=== PATIENT | female | born 1980 | race Caucasian/White ===

== ENCOUNTER 2017-04-25 10:19 | Inpatient (IN) | payer MEDICAID ==
[~2017-04-25] VITALS: Ht 152.4 cm; Wt 70.0 kg
[2017-04-25 10:21] VITALS: Ht 152.4 cm; Wt 70.0 kg
[2017-04-25 10:22] VITALS: BP 106/59; PULSE 52; RESP 20
--- NOTE | 2017-04-25 12:39 | RADRPT ---
PROCEDURE: Obstetrical ultrasound CLINICAL INDICATION: ,JEROME TECHNIQUE: Multiple sonographic images of the pelvis were obtained. The images were reviewed on a PACS workstation. COMPARISON: None FINDINGS: The cervix is not well visualized. There is a single viable intrauterine gestation. Cardiac activity is present with 157 beats per minute. There is a vertex presentation. The placenta is anterior. There is no evidence for an abruption or placenta previa. There is a low amount of amniotic fluid with an JEROME = 5.2 cm. Measurements were made in order to determine age. The results are as follows (cm): BPD =8.48 HC =31.18 AC =32.14 FL =6.50 Estimated gestational age by ultrasound of approximately 34 weeks, 5 days. The estimated date of delivery by ultrasound is 06/01/2017. Estimated gestational age by LMP of approximately 36 weeks, 3 days. The estimated date of delivery by LMP is 05/20/2017. EFW = 2586 grams (19th percentile) IMPRESSION: Single viable intrauterine gestation of approximately 34 weeks, 5 days . The estimated date of delivery is 06/01/2017 . Dating by ultrasound is within 12 days of dating by LMP. Low JEROME of 5.2 cm. Cephalic presentation. Estimated weight is in the 19th percentile. RPTAT: EE Physician Ade Date Time Electronically viewed and signed by Physician Ade on 04/25/2017 12:39 /
--- NOTE | 2017-04-25 12:57 | TRIAGE ---
OB Triage Datetime Report Generated by CPN: 04/25/2017 12:56 Datetime: 04/25/2017 12:14 Labor Evaluation Frequency: X3 Monitor Mode: External Duration (sec)2399: 40-90 Quality: Mild Pattern: Normal: <= 5 Contractions in 10 Minutes Resting Tone Cherry Log: Relaxed Heart Rate FHR Baseline Rate: 145 Monitor Mode: External US FHR Baseline Changes: No Baseline Change Variability: Moderate 6-25 bpm Accelerations: 15X15 Decelerations: Early Category: Category II Pain Assessment Pain Scale: 1 Pain Presence: Intermittent Pain Type: Contraction Pain Location: Abdomen Pain Goal: 2 Datetime: 04/25/2017 11:44 Labor Evaluation Frequency: X2 Monitor Mode: External Duration (sec)2399: 40-80 Quality: Mild Pattern: Normal: <= 5 Contractions in 10 Minutes Resting Tone Cherry Log: Relaxed Heart Rate FHR Baseline Rate: 145 Monitor Mode: External US FHR Baseline Changes: No Baseline Change Variability: Moderate 6-25 bpm Accelerations: 15X15 Decelerations: Early Category: Category I Pain Assessment Pain Scale: 0 Pain Presence: None/Denies Pain Type: N/A Pain Goal: 2 Datetime: 04/25/2017 11:14 Labor Evaluation Frequency: X3 Monitor Mode: External Duration (sec)2399: 60-120 Quality: Mild Pattern: Normal: <= 5 Contractions in 10 Minutes Resting Tone Cherry Log: Relaxed Heart Rate FHR Baseline Rate: 140 Monitor Mode: External US FHR Baseline Changes: No Baseline Change Variability: Moderate 6-25 bpm Accelerations: 15X15 Decelerations: None Category: Category I Pain Assessment Pain Scale: 0 Pain Presence: None/Denies Pain Type: N/A Pain Goal: 2 Datetime: 04/25/2017 10:45 Labor Evaluation Frequency: 1-4 Monitor Mode: External Duration (sec)2399: 40-80 Quality: Mild Pattern: Normal: <= 5 Contractions in 10 Minutes Resting Tone Cherry Log: Relaxed Heart Rate FHR Baseline Rate: 150 Monitor Mode: External US FHR Baseline Changes: No Baseline Change Variability: Moderate 6-25 bpm Accelerations: 10X10 Decelerations: Early Category: Category I Pain Assessment Pain Scale: 0 Pain Presence: None/Denies Pain Type: N/A Pain Goal: 2 Membrane Status: Ruptured Datetime: 04/25/2017 10:35 Vaginal Exam Dilatation (cms): 2.0 Effacement (%): 60 Station: -3 Exam By: MAY Membrane Status: Ruptured Datetime: 04/25/2017 10:25 Stage of : OB Triage Assessment Type: Triage EGA: 36.2 Arrived By: Ambulatory Arrived From: Home Maternal Assessment Level of Consciousness: Fully Conscious DTR's/Clonus: DTRs 2+; No Clonus Headache: Denies Blurred Vision: No Respiratory Effort: Unlabored; Regular Rhythm; Equal Expansion Nausea/Vomiting: Denies RUQ Epigastric Pain: Denies Lower Extremities Edema: None Degree: None Upper Extremities Edema: None Degree: None Facial Edema: None Temperature Route: Axillary Fall Risk Assessment History of Falling: (0) No Secondary Diagnosis: (0) No Ambulatory Aid: (0) Bedrest/Nurse Assist IV Therapy: (0) No Gait: (0) Normal/Bedrest/Immobile Mental Status: (0) Oriented to Own Ability Fall Score: 0 Fall Risk Score Definition: No Risk: No action required Datetime: 04/25/2017 10:05 Time of Arrival: 04/25/2017 10:05 Arrived By: Ambulatory Arrived From: Home Chief Complaint: C/O LEAKING SINCE 629 Movement: Present Rupture of Membranes: Unsure Vaginal Bleeding: None Vaginal Discharge: Denies Recent Sexual Intercouse: Denies Abdominal Trauma: Not Applicable Patient Complaints: Other Time Provider Notified: 04/25/2017 11:25 Provider Notified: DR. FRANCO Initial Plan: ASHU
[2017-04-25] MEDS ORDERED: ACETAMINOPHEN/CODEINE #3 TAB PO PRN ×3 (13:00→22:00)
[2017-04-25] MEDS ORDERED: MISOPROSTOL 200 MCG TAB PR PRN (13:00)
[2017-04-25] MEDS ORDERED: OXYTOCIN 30 UNITS/LR 500 ML IV SCH ×3 (13:00)
[2017-04-25] MEDS ORDERED: BUTORPHANOL 2 MG INJ IV PRN (13:00)
[2017-04-25] MEDS ORDERED: METHYLERGONOVINE 0.2 MG INJ IM PRN (13:00)
[2017-04-25] MEDS ORDERED: LIDOCAINE 1% (MPF) 30 ML INJ INJ PRN (13:00)
[2017-04-25] MEDS ORDERED: IBUPROFEN 600 MG TAB PO PRN (13:00)
[2017-04-25] MEDS ORDERED: AMPICILLIN 2 GM/NS (PMX) 100 ML IV ONE (13:00)
[2017-04-25] MEDS ORDERED: CARBOPROST 250 MCG INJ IM PRN (13:00)
[2017-04-25] MEDS ORDERED: OXYTOCIN 30 UNITS/LR 500 ML IV PRN (13:00)
[2017-04-25] MEDS: LACTATED RINGER'S 1,000 ML IV SCH ×2 (13:26→17:50)
[2017-04-25 13:34] LABS: ADD SCAN DIFF NO
[2017-04-25 13:37] LABS: BASOPHILS % 0.3 % (0.0-2.0); EOSINOPHILS # 0.1 10^3/ul (0.0-0.5); EOSINOPHILS % 0.5 % (0.0-7.0); HEMATOCRIT 36.2 % (37.0-47.0); HEMOGLOBIN 12.1 g/dl (12.0-16.0); LYMPHOCYTES # 1.6 10^3/ul (0.8-2.9); LYMPHOCYTES % 17.3 % (15.0-51.0); MEAN CORPUSCULAR HEMOGLOBIN 32.9 pg (29.0-33.0); MEAN CORPUSCULAR HGB CONC 33.4 g/dl (32.0-37.0); MEAN CORPUSCULAR VOLUME 98.4 fl (82.0-101.0); MEAN PLATELET VOLUME 10.7 fl (7.4-10.4); MONOCYTE # 0.6 10^3/ul (0.3-0.9); MONOCYTES % 6.3 % (0.0-11.0); NEUTROPHIL # 6.8 10^3/ul (1.6-7.5); NEUTROPHILS % 74.8 % (39.0-77.0); PLATELET COUNT 197 10^3/UL (140-415); RED BLOOD COUNT 3.68 10^6/ul (4.20-5.40); RED CELL DISTRIBUTION WIDTH 13.6 % (11.5-14.5); WHITE BLOOD COUNT 9.1 10^3/ul (4.8-10.8)
[2017-04-25 13:56] LABS: INR 1.03; PARTIAL THROMBOPLASTIN TIME 30.1 Sec (25.0-35.0); PROTIME 13.5 Sec (12.2-14.2); PT RATIO 1.1
[2017-04-25] MEDS ORDERED: LACTATED RINGER'S 1,000 ML IV PRN (14:00)
[2017-04-25] MEDS ORDERED: AMPICILLIN 1 GM/NS (PMX) 50 ML IV SCH (17:00)
[2017-04-25] MEDS ORDERED: FENTAnyl 2MCG/ML-ROPIV 0.2% 100 ML ONE (17:40)
--- NOTE | 2017-04-25 18:38 | HP ---
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 30 days history of 3 previous with normal vaginal deliveries years , 2005 and 2008 Chief Complaint: Premature rupture of membrane early labor Estimated Due Date: May 21, 2017 : 4 Para: 3 Care: Good Care Ultrasounds: Normal mid trimester US Obstetrical Complications: None Medical Complications: None Past Family/Social History * Past Medical, Surgical, Family and Obstetric Histories reviewed from chart. Rubella: immune RPR/VDRL: Negative GBS Status: Negative HBsAG: Negative OB Admission Exam Vital Signs Vital Signs Vital Signs Date Time Temp Pulse Resp B/P Pulse Ox O2 Delivery O2 Flow Rate FiO2 04/25/17 10:22 98.1 52 20 106/59 Room Air Physical Exam HEENT: WNL Heart: Rhythm Normal Lungs: Clear, Equal Abdomen: WNL Extremities: Normal Reflexes: Normal Cervical Dilatation: 2cm Effacement: 50% Station: -2 Membranes: Ruptured Amniotic Fluid: Clear Heart Rate: 130's Accelerations: Accelerations Present Decelerations: Early Decelerations Varibility: Moderate Contractions on Admission: >10 Minutes Apart Intensity: Moderate Last 72 hours Lab Results CBC & BMP 04/25/17 13:05 OB Assessment/Plan Plan: Expectant Management (1), Other (Labor augmentation) Induction Method: per Pitocin Protocol MARILYN FRANCO MD Apr 25, 2017 18:38
--- NOTE | 2017-04-25 19:01 | LDN ---
Date/Time of Note Date/Time of Note DATE: 04/25/17 TIME: 18:59 Delivery Summary Normal spontaneous vaginal delivery of a baby boy from OA position shoulders delivered without any difficulties rest of the baby's body followed placenta spontaneous expulsion inspected complete peritoneal vaginal infection no lacerations Weeks of Gestation 36 weeks 2 days Placenta Delivered: Spontaneously Meconium: none Episiotomy: No Laceration repair: None Anesthesia type: Epidural Estimated blood loss: 250 Sponge & Needle done & correct: Yes All needle counts correct: Yes Any foreign bodies felt in the: No Problems: Delivery Information Sex Sex: male Apgars 1 Minute: 9 5 Minute: 9 Suctioning Nose & mouth suctioned at farnaz: Yes Delee suction performed: No Umbilical Cord Umbilical cord with: 3 Vessels Cord presentations: no nuchal cord Cord Blood was obtained: Yes MARILYN FRANCO MD Apr 25, 2017 19:01
[2017-04-25 20:20] VITALS: BP 109/62; PULSE 77; RESP 18
[2017-04-25 21:20] VITALS: BP 109/62; RESP 19
[2017-04-25] MEDS ORDERED: OXYCODONE/ASPIRIN (4.88/325) TAB PO PRN ×2 (22:00)
[2017-04-25] MEDS ORDERED: DIBUCAINE 1% 30 GM OINT PR PRN (22:00)
[2017-04-25] MEDS ORDERED: ONDANSETRON 4 MG INJ IV PRN (22:00)
[2017-04-25] MEDS ORDERED: BENZOCAINE 20% 56 ML SPRAY TOP PRN (22:00)
[2017-04-25] MEDS ORDERED: LANOLIN 7 GM TUBE TOP PRN (22:00)
[2017-04-25] MEDS ORDERED: ACETAMINOPHEN 325 MG TAB PO PRN (22:00)
[2017-04-25] MEDS ORDERED: WITCH HAZEL/GLYCERIN PAD PR PRN (22:00)
[2017-04-25 22:20] VITALS: BP 106/59; PULSE 81; RESP 18
[2017-04-25] MEDS: OXYTOCIN 30 UNITS/LR 500 ML IV SCH (23:51)
[2017-04-25] MEDS: IBUPROFEN 600 MG TAB PO SCH (23:51)
[2017-04-26] VITALS: BP 104/52; PULSE 85; RESP 19
[2017-04-26] MEDS: OXYTOCIN 30 UNITS/LR 500 ML IV SCH (01:55)
[2017-04-26 04:00] VITALS: BP 106/58; PULSE 66; RESP 19
[2017-04-26] MEDS: IBUPROFEN 600 MG TAB PO SCH ×4 (05:42→23:30)
[2017-04-26 06:38] LABS: ADD SCAN DIFF NO
[2017-04-26 06:45] LABS: BASOPHILS % 0.3 % (0.0-2.0); EOSINOPHILS % 0.3 % (0.0-7.0); HEMATOCRIT 35.8 % (37.0-47.0); HEMOGLOBIN 11.9 g/dl (12.0-16.0); LYMPHOCYTES # 2.1 10^3/ul (0.8-2.9); LYMPHOCYTES % 13.7 % (15.0-51.0); MEAN CORPUSCULAR HEMOGLOBIN 32.9 pg (29.0-33.0); MEAN CORPUSCULAR HGB CONC 33.2 g/dl (32.0-37.0); MEAN CORPUSCULAR VOLUME 98.9 fl (82.0-101.0); MEAN PLATELET VOLUME 11.1 fl (7.4-10.4); MONOCYTE # 1.1 10^3/ul (0.3-0.9); MONOCYTES % 6.9 % (0.0-11.0); NEUTROPHILS % 78.3 % (39.0-77.0); PLATELET COUNT 189 10^3/UL (140-415); RED BLOOD COUNT 3.62 10^6/ul (4.20-5.40); RED CELL DISTRIBUTION WIDTH 13.6 % (11.5-14.5); WHITE BLOOD COUNT 15.3 10^3/ul (4.8-10.8)
[2017-04-26 08:30] VITALS: BP 94/50; PULSE 80; RESP 19
[2017-04-26] MEDS: SENNA/DOCUSATE NA (8.6MG/50MG) TAB PO SCH ×2 (09:50→20:49)
[2017-04-26 12:00] VITALS: BP 84/50; PULSE 80; RESP 18
--- NOTE | 2017-04-26 12:07 | PN ---
Date/Time of Note Date/Time of Note DATE: 04/26/17 TIME: 12:05 OB Subjective Subjective Subjective April 24 2017 Post day 1 Patient is doing well, Ambulatory She is afebrile Abdomen is soft , Fundus is firm Moderate amount of lochia Breasts are soft, Nipples are intact No calf tenderness. Laboratory Tests Test 04/25/17 13:05 04/26/17 06:15 White Blood Count 9.110^3/ul 15.310^3/ul Red Blood Count 3.6810^6/ul 3.6210^6/ul Hemoglobin 12.1g/dl 11.9g/dl Hematocrit 36.2% 35.8% Mean Corpuscular Volume 98.4fl 98.9fl Mean Corpuscular Hemoglobin 32.9pg 32.9pg Mean Corpuscular Hemoglobin Concent 33.4g/dl 33.2g/dl Red Cell Distribution Width 13.6% 13.6% Platelet Count 81323^3/UL 13012^3/UL Mean Platelet Volume 10.7fl 11.1fl Neutrophils % 74.8% 78.3% Lymphocytes % 17.3% 13.7% Monocytes % 6.3% 6.9% Eosinophils % 0.5% 0.3% Basophils % 0.3% 0.3% Nucleated Red Blood Cells % 0.0/100WBC 0.0/100WBC Neutrophils # 6.810^3/ul 12.010^3/ul Lymphocytes # 1.610^3/ul 2.110^3/ul Monocytes # 0.610^3/ul 1.110^3/ul Eosinophils # 0.110^3/ul 0.010^3/ul Basophils # 0.010^3/ul 0.010^3/ul Nucleated Red Blood Cells # 0.010^3/ul 0.010^3/ul Prothrombin Time 13.5Sec Prothrombin Time Ratio 1.1 INR International Normalized Ratio 1.03 Activated Partial Thromboplast Time 30.1Sec Rapid Plasma Reagin NONREACTIVE Hepatitis B Surface Antigen NEGATIVE Current Medications Medications (Trade) Dose Ordered Sig/Ana Cristina Route PRN Reason Start Time Stop Time Status Last Admin Dose Admin Lactated Ringer's 1,000 ml @ 125 mls/hr Q8H IV 04/25/17 12:59 04/25/17 21:58 DC 04/25/17 17:50 Ampicillin 100 ml @ 100 mls/hr ONCE ONCE IV 04/25/17 13:00 04/25/17 13:59 DC 04/25/17 13:26 Ampicillin 50 ml @ 100 mls/hr Q4H IV 04/25/17 17:00 04/25/17 21:58 DC 04/25/17 16:46 Oxytocin/Lactated Ringer's 500 ml @ 0 mls/hr TITRATE IV 04/25/17 13:00 04/25/17 21:58 DC 04/25/17 13:37 Butorphanol Tartrate (Stadol) 2 mg Q2H PRN IV PAIN 04/25/17 13:00 04/25/17 21:58 DC Lidocaine 30 ml 30 ml ONCE PRN INJ EPISIOTOMY/TEARING 04/25/17 13:00 04/25/17 21:58 DC Oxytocin/Lactated Ringer's 500 ml @ 125 mls/hr ONCE -MAY REPEAT X1 IV 04/25/17 13:00 04/25/17 21:58 DC 04/25/17 19:26 Oxytocin/Lactated Ringer's 500 ml @ 125 mls/hr ONCE IV 04/25/17 13:00 04/25/17 21:58 DC Ibuprofen (Motrin) 600 mg ONCE PRN PO Mild Pain (Pain Score 1-3) 04/25/17 13:00 04/25/17 21:58 DC Acetaminophen/ Codeine Phosphate 2 tab 2 tab ONCE PRN PO Moderate to Severe Pain (4-10) 04/25/17 13:00 04/25/17 21:58 DC Lactated Ringer's 1,000 ml @ 2,000 mls/hr Q30M PRN IV PRE-EPIDURAL BOLUS 04/25/17 14:00 04/25/17 21:58 DC 04/25/17 17:05 Oxytocin/Lactated Ringer's 500 ml @ 0 mls/hr ONCE PRN IV For Hemorrhage Management 04/25/17 13:00 04/25/17 21:58 DC Methylergonovine Maleate (Methergine) 0.2 mg ONCE PRN IM VAGINAL BLEEDING 04/25/17 13:00 04/25/17 21:59 DC Carboprost Tromethamine (Hemabate) 250 mcg ONCE PRN IM VAGINAL BLEEDING 04/25/17 13:00 04/25/17 21:58 DC Misoprostol 1000 mcg 1,000 mcg ONCE PRN VT VAGINAL BLEEDING 04/25/17 13:00 04/25/17 21:59 DC Fentanyl/ Ropivacaine 100 ml @ ud STK-MED ONCE .ROUTE 04/25/17 17:40 04/25/17 17:41 DC Oxytocin/Lactated Ringer's 500 ml @ 125 mls/hr Q4H IV 04/25/17 21:55 04/26/17 05:54 DC 04/25/17 23:51 Ibuprofen (Motrin) 600 mg Q6 PO 04/26/17 00:00 04/26/17 11:42 Acetaminophen (Tylenol Tab) 650 mg Q4H PRN PO PAIN LEVEL 1-5 04/25/17 22:00 Acetaminophen/ Codeine Phosphate (Tylenol No.3) 1 tab Q4H PRN PO PAIN LEVEL 1-5 04/25/17 22:00 Acetaminophen/ Codeine Phosphate (Tylenol No.3) 2 tab Q4H PRN PO PAIN LEVEL 6-10 04/25/17 22:00 Oxycodone/Aspirin (Percodan) 1 tab Q3H PRN PO PAIN LEVEL 1-5 04/25/17 22:00 Oxycodone/Aspirin (Percodan) 2 tab Q3H PRN PO PAIN LEVEL 6-10 04/25/17 22:00 Ondansetron HCl (Zofran Inj) 4 mg Q6H PRN IV NAUSEA AND/OR VOMITING 04/25/17 22:00 Senna/Docusate Sodium (Senokot-S) 1 tab BID PO 04/26/17 09:00 04/26/17 09:50 Witch Leisa/ Glycerin (Tucks Pads) 1 pad BEDSIDE MEDICATION PRN VT HEMORRHOID/EPISIOTMY PAIN 04/25/17 22:00 Benzocaine (Dermoplast [place]) 1 spray BEDSIDE MEDICATION PRN TOP HEMORRHOID/EPISIOTMY PAIN 04/25/17 22:00 Dibucaine (Nupercainal) 1 applic BEDSIDE MEDICATION PRN VT HEMORRHOID/EPISIOTMY PAIN 04/25/17 22:00 Lanolin (Seh-P-Rurfnp) 1 applic BEDSIDE MEDICATION PRN TOP BEDSIDE FOR HÉCTOR TO NIPPLES 04/25/17 22:00 04/25/17 23:52 Measles/Mumps/ Rubella Vaccine Live (Mmr Ii Vaccine) 0.5 ml ONCE ONCE SC* 04/27/17 09:00 04/27/17 09:01 Breast feeding the new born. BERNARD MELENDEZ MD Apr 26, 2017 12:07
[2017-04-26 16:00] VITALS: BP 122/94; PULSE 78; RESP 18
[2017-04-26 20:00] VITALS: BP 106/52; PULSE 59; RESP 18
[2017-04-27 04:00] VITALS: BP 101/46; PULSE 72; RESP 18
[2017-04-27] MEDS: IBUPROFEN 600 MG TAB PO SCH ×2 (05:43→12:00)
[2017-04-27 08:00] VITALS: BP 111/59; PULSE 83; RESP 18
[2017-04-27] MEDS ORDERED: MEASLES,MUMPS,RUBELLA VACCINE INJ SC* ONE (09:00)
[2017-04-27] MEDS: SENNA/DOCUSATE NA (8.6MG/50MG) TAB PO SCH (09:00)
--- NOTE | 2017-04-27 12:36 | DS ---
Date/Time of Note Date/Time of Note DATE: 04/27/17 TIME: 12:33 Discharge Summary Admission/Discharge Info Admit Date/Time Apr 25, 2017 at 12:55 Discharge Date/Time April 27, 2017 at 1230 Final Diagnosis Post normal vaginal delivery day 2 Patient Condition: Good Procedures Normal spontaneous vaginal delivery Hx of Present Illness Term intrauterine Hospital Course Satisfactory uneventful Follow-up Plan Appointment clinic in 2 weeks patient received extensive instructions Primary Care Provider Care Physician No Primary Time spent on discharge: < 30 minutes MARILYN FRANCO MD Apr 27, 2017 12:36
--- NOTE | 2017-04-27 14:29 | CONS ---
DATE OF ADMISSION: 04/25/2017 DATE OF CONSULTATION: 04/27/2017 CARDIOLOGY CONSULTATION REASON FOR CONSULTATION: PVCs in a pattern of bigeminy, bradycardia. REQUESTING PHYSICIANS: Marilyn Duenas MD and Annie Harden NP from the hospitalist service HISTORY OF PRESENT ILLNESS: Ms. Ferro is a 37-year-old female who is a G4, P4 status post normal s pontaneous vaginal delivery day #2 who was to be discharged and underwent routine analysis and was f ound to be bradycardic by vital sign assessment. The patient subsequently underwent an EKG revealin g sinus rhythm with PVCs in a pattern of bigeminy. Given these findings, cardiology consult has bee n requested. The patient currently denies chest pain, palpitation, dizziness, shortness of breath, prior syncope. The patient does state that in the past she has been told to see a top lift scourer for slow heart rates, but did not follow up as she felt okay. PAST MEDICAL HISTORY: As above in HPI. MEDICATIONS CURRENTLY IN HOSPITAL: 1. Ibuprofen. 2. Oxycodone. 3. Senna. ALLERGIES: NO KNOWN DRUG ALLERGIES. SOCIAL HISTORY: No tobacco, ETOH or illicit drug use. FAMILY HISTORY: No history of sudden cardiac or early CAD. REVIEW OF SYSTEMS: As above in HPI. CONSTITUTIONAL: No fevers, chills. PULMONARY: No current shortness of breath. CARDIOVASCULAR: PVCs, bigeminy. GASTROINTESTINAL: No vomiting. GENITOURINARY: No hematuria. MUSCULOSKELETAL: No degenerative joint disease. PSYCHIATRIC: No documented psych history. PHYSICAL EXAMINATION: VITAL SIGNS: Temperature 98, blood pressure 111/59, pulse 83, respirations 18. GENERAL: The patient is alert, awake, in no acute distress. NECK: JVP approximately 8 cm of water. CHEST: Fair air movement throughout. HEART: Regular rate and rhythm. Normal S1, S2, I/ systolic murmur, nondisplaced PMI. ABDOMEN: Positive bowel sounds, soft. EXTREMITIES: No edema, 1+ pulses bilaterally, posterior tibial. LABORATORIES: Most recently from the [facility], white blood cell count of 15.3, hemoglobin 11.9, platelet count of 189. INR of 1.0. IMAGING STUDIES: As above in HPI. No further imaging studies for my review at this time. ECG: Shows sinus rhythm at 86 with PVCs in a pattern of bigeminy. IMPRESSION: 1. Premature ventricular contractions/pattern of bigeminy, assess for ongoing significant arrhythmi a. Rule out acute coronary syndrome. 2. Bradycardia, currently reasonable and may be related to the patient's PVCs not being counted in the rhythm. 3. Hypotension early in the morning, now improved. 4. Status post normal spontaneous vaginal delivery. RECOMMENDATIONS: 1. At this time, would transfer patient to telemetry monitoring to assess for ongoing significant c ardiac arrhythmia. 2. Will check the patient's electrolytes, most notably potassium, magnesium, and replete greater th an 4 and 2 respectively as necessary. 3. Will continue to check serial EKGs to assess for any significant ongoing changes. EKG in the mo rning, EKG for any complaints of chest pain or change in rhythm. 4. We will follow the patient's blood pressure and heart rate and if can tolerate it, will initiate the patient on low-dose beta krunal for suppression of further bouts of PVCs and bigeminy. 5. Check a 2-D echo to further assess the patient's ejection fraction, wall motion, and any major a bnormalities and will complete a rule out for myocardial infarction to ensure that the patient's new onset PVCs and bigeminy are not due to any invoked coronary syndromes, vasospastic disease. Thank you for allowing me to take part in the care of this patient. I will continue to follow along very closely with you. Further recommendations will be made as the patient progresses through her inpatient hospital clinical course. Dictated By: DEMETRIO WHITTINGTON/WILFRID Conf#: [id number] DID#: [id number] CC: MARILYN DUENAS MD; ANNIE HARDEN NP;*EndCC*
[2017-04-27 15:28] LABS: CALCIUM 8.5 mg/dl (8.4-10.2); CREATININE 0.78 mg/dl (0.44-1.00); MAGNESIUM 1.7 mg/dl (1.7-2.5); POTASSIUM 4.1 mmol/L (3.5-5.1)
--- NOTE | 2017-04-27 15:43 | HP ---
Date/Time of Note Date/Time of Note DATE: 04/27/17 TIME: 15:41 Assessment/Plan VTE Prophylaxis VTE Prophylaxis Intervention: ambulation Lines/Catheters IV Catheter Type (from Nrs): Peripheral IV Assessment/Plan Chief Complaint/Hosp Course Impression and plan 1. Reported PVC as well as bradycardia. Patient asymptomatic at this time. Home Decorator was consulted. Recommend for telemetry monitoring. Follow-up on echocardiogram. So troponins to be done. Follow-up on thyroid profile 2. Reported hypotension. Improved at present. Will monitor for now. 3. Recent status post spontaneous vaginal delivery. CONDENSER OPERATOR was following. Patient for outpatient follow-up Admission process time is 40 minutes Discussed plan of care with Dr. Montoya Problems: HPI/ROS Admit Date/Time Admit Date/Time Apr 25, 2017 at 12:55 Hx of Present Illness This is a 37-year-old female with no reported past medical history who was recently 4 para 4 with recent spontaneous vaginal delivery 1 day ago who was initially admitted to [facility] for delivery. Was reported that after patient's delivery she was found to be bradycardic and also had some PVC. She was noted to be asymptomatic.. She denied any chest pain or shortness of breath or any other history of heart disease. Patient was also have noted white count of 15.3 afebrile. Denies any chest pain or shortness of breath or any heart palpitations at this time. No history or reports of drug use. We will evaluate her for the aformentiond issues ROS 12 point review of systems obtained entirely negative except that mentioned in history of present illness PMH/Family/Social Past Medical History Medical History: no pertinent history Past Surgical History Past Surgical Hx: no surgical history Family History Significant Family History: no pertinent family hx Social History Alcohol Use: none Smoking Status: Never smoker Drug Use: none Exam/Review of Systems Vital Signs Vitals Vital Signs Date Time Temp Pulse Resp B/P Pulse Ox O2 Delivery O2 Flow Rate FiO2 04/27/17 08:00 98.0 83 18 111/59 Room Air Exam Constitutional: alert Psych: no complaints Head: normocephalic Neck: supple, No jvd Respiratory: clear to auscultation, normal air movement Cardiovascular: other (Irregular rate) Gastrointestinal: non-tender, soft Musculoskeletal: nl extremities to inspection, nl gait and stance Extremities: normal pulses Neurological: LITIGATION MANAGER II-XII intact, nl mental status, nl speech Labs Result Diagram: 04/26/17 0615 Medications Medications Current Medications Ibuprofen (Motrin) 600 mg Q6 PO Last administered on 04/27/17 05:43; Admin Dose 600 MG; Start 04/26/17 at 00:00 Acetaminophen (Tylenol Tab) 650 mg Q4H PRN PO PAIN LEVEL 1-5; Start 04/25/17 at 22:00 Acetaminophen/ Codeine Phosphate (Tylenol No.3) 1 tab Q4H PRN PO PAIN LEVEL 1-5 ; Start 04/25/17 at 22:00 Acetaminophen/ Codeine Phosphate (Tylenol No.3) 2 tab Q4H PRN PO PAIN LEVEL 6- 10; Start 04/25/17 at 22:00 Oxycodone/Aspirin (Percodan) 1 tab Q3H PRN PO PAIN LEVEL 1-5; Start 04/25/17 at 22:00 Oxycodone/Aspirin (Percodan) 2 tab Q3H PRN PO PAIN LEVEL 6-10; Start 04/25/17 at 22:00 Ondansetron HCl (Zofran Inj) 4 mg Q6H PRN IV NAUSEA AND/OR VOMITING; Start 04/25 at 22:00 Senna/Docusate Sodium (Senokot-S) 1 tab BID PO Last administered on 04/26/17 20 :49; Admin Dose 1 TAB; Start 04/26/17 at 09:00 ANNIE DAVENPORT Apr 27, 2017 15:43
--- NOTE | 2017-04-27 15:58 | RADRPT ---
Echocardiogram Report Patient Name: VANESSA LATHAM Gender: Female Date: 1980 Study Date: 27-Apr-2017 Chief Media Officer: Isabel Herrera, Location: [facility] Ref. Physician: ANNIE DAVENPORT Quality: Good Procedures: Transthoracic echocardiogram with complete 2D, M-Mode, and doppler examination. Indications: Bradycardia/PVC. 2D/M Mode Doppler Measurement Value Normal Ranges Measurement Value Normal Ranges LVIDd 2D 4.7 3.5 - 5.6 cm AV Peak [place] 1.6 m/sec LVIDs 2D 3.7 2.1 - 4.1 cm AV Peak PG 10.1 mmHg LVPWd 2D 1.0 0.6 - 1.1 cm LVOT Peak [place] 0.9 m/sec IVSd 2D 0.8 0.6 - 1.1 cm LVOT Peak PG 3.4 mmHg AoR Diam 2D 2.3 2.0 - 3.7 cm MV E Peak [place] 1.0 m/sec EDV 2D 101.0 cm3 MV A Peak [place] 0.8 m/sec ESV 2D 52.2 cm3 MV E/A 1.4 LA Dimen 2D 3.7 2.3 - 4.0 cm MV Decel Time 267 msec MV Decel [place] 4 MV E/A 1.4 TR Peak [place] 2.9 m/sec TR Peak PG 32.9 mmHg RVSP 36.0 mmHg Findings Left Ventricle: Normal left ventricular cavity size. Normal left ventricular wall thickness. Mild left ventricular systolic dysfunction. Ejection fraction is visually estimated at 4045 %. Right Ventricle: Normal right ventricular size. Normal right ventricular systolic function. Left Atrium: The left atrium is normal in size. Right Atrium: The right atrium is normal in size. Mitral Valve: Normal appearance and function of the mitral valve with trace physiologic regurgitation. Aortic Valve: Normal appearance of the aortic valve. No significant aortic stenosis or insufficiency. Tricuspid Valve: Normal appearance of the tricuspid valve. Estimated peak PA systolic pressure 36 mmHg. There is mild tricuspid regurgitation. Pulmonic Valve: Normal pulmonic valve appearance. Pericardium: Normal pericardium with no significant pericardial effusion. Aorta: Normal aortic root. IVC: Normal size and normal respiratory collapse consistent with normal right atrial pressure. Conclusions 1.Normal left ventricular cavity size. Normal left ventricular wall thickness. Mild left ventricular systolic dysfunction. Ejection fraction is visually estimated at 40-45 %. 2.Normal appearance and function of the mitral valve with trace physiologic regurgitation. 3.Normal appearance of the tricuspid valve. Estimated peak PA systolic pressure 36 mmHg. There is mild tricuspid regurgitation. Electronically Signed By: Burke Connelly 27-Apr-2017 15:57:18 -0700 Patient Name: VANESSA LATHAM Study Date: 27-Apr-2017 [id number]
[2017-04-27 15:59] LABS: THYROID STIMULATING HORMONE 2.34 MIU/L (0.465-4.680)
[2017-04-27 16:00] VITALS: BP 110/60; PULSE 78; RESP 18
--- NOTE | 2017-04-28 17:01 | RADRPT ---
Vent Rate: 86 bpm RR Interval: 0 msec MS Interval: 144 msec QRS Duration: 78 msec QT Interval: 344 msec QTC Interval: 411 msec P-R-T [place]: 28 - 65 - 47 degrees Sinus rhythm with frequent premature ventricular complexes in a pattern of bigeminy Otherwise normal ECG No previous tracing available for comparison Electronically Signed By: Dayo Lay [id number]
== END 2017-04-27 17:10 | disposition home or self-care (01) | DRG 775 ==
LOC: L-D 10:19 → OBT 10:19 → L-D 12:55 → OBT 12:55 → PP1 21:21
PROVIDERS: ADMIT Obstetrics & Gynecology; ATTEND Obstetrics & Gynecology
PROC: 10E0XZZ Delivery of Products of Conception, External Approach (ICD-10-PCS; principal; 2017-04-25)
DX: O60.14X0 Preterm labor third trimester with preterm delivery third trimester, not applicable or unspecified (principal); O26.53 Maternal hypotension syndrome, third trimester; O76 Abnormality in fetal heart rate and rhythm complicating labor and delivery; Z3A.36 36 weeks gestation of pregnancy; Z37.0 Single live birth
CPT/HCPCS: 62319; 76815; 80048; 83735; 84112; 84443; 85025; 85610; 85730; 86592; 86900; 86901; 87340; 93005; 93306; G0463; J0290; J2590; J3010; J7120